=== PATIENT | male | born 1945 ===

== ENCOUNTER 2018-08-22 18:33 | Emergency (ER) | payer OTHER ==
[~2018-08-22] VITALS: Ht 180.3 cm; Wt 89.8 kg
[2018-08-22] MEDS ORDERED: COZAAR100 MG (18:44)
[2018-08-23] MEDS ORDERED: MEDROLPACK PO (09:32)
[2018-08-23] MEDS ORDERED: TESSALON PERLE100 M1 PO (09:32)
[2018-08-23] MEDS ORDERED: TUSSIN DM LIQU118 ML PO (09:32)
[2018-08-23] MEDS ORDERED: OSEL75CA PO (09:32)
[2018-08-23] MEDS ORDERED: ZITHROMAX500 MG PO (09:32)
== END 2018-08-23 21:40 | disposition home or self-care (01) ==
LOC: ER 18:33
DX: J11.1 Influenza due to unidentified influenza virus with other respiratory manifestations (principal); J44.9 Chronic obstructive pulmonary disease, unspecified